=== PATIENT | male | born 1970 | race African-American/Black ===

== ENCOUNTER 2017-03-21 11:01 | Inpatient (IN) | payer OTHER ==
[2017-03-21 11:45] VITALS: BMI 31.7
--- NOTE | 2017-03-21 12:39 | HP ---
Admission ROS [facility] Chief Complaint: "I need to right my wrongs." Patient is here for Rehab for Cocaine. Allergies/Adverse Reactions: Allergies Allergy/AdvReac Type Severity Reaction Status Date / Time apple Allergy Intermediate Verified 03/21/17 11:54 History of Present Illness: Patient is a 46 YO male here for Rehab for Cocaine. Patient has had previous Detox admissions at [facility]. Exam Limitations: No Limitations - Ebola screening Have you traveled outside of the country in the last 21 days: No Have you had contact with anyone from an Ebola affected area: No Have you been sick,other than usual withdrawal symptoms: No Do you have a fever: No - Review of Systems Constitutional: Loss of Appetite, Malaise EENT: reports: Tearing, Dental Problems (Missing 1 tooth (upper).) Respiratory: reports: No Symptoms reported Cardiac: reports: No Symptoms Reported GI: reports: Blood Streaked Bowels (Interrmittent; Patient reports history of recurrent Hemorrhoid (since 2014).), Diarrhea, Poor Appetite : reports: No Symptoms Reported Musculoskeletal: reports: Back Pain Integumentary: reports: Other (Tattoo on top of head; patient has been scratching area recently.) Neuro: reports: No Symptoms reported Endocrine: reports: No Symptoms Reported Hematology: reports: No Symptoms Reported Psychiatric: reports: Judgement Intact, Mood/Affect Appropiate, Orientated x3 Other Systems: Reviewed and Negative Patient History - Patient Medical History Hx Anemia: No Hx Asthma: No Hx Chronic Obstructive Pulmonary Disease (COPD): No Hx Cancer: No Hx Cardiac Disorders: No Hx Congestive Heart Failure: No Hx Hypertension: No Hx Hypercholesterolemia: No Hx Pacemaker: No HX Cerebrovascular Accident: No Hx Seizures: No Hx Dementia: No Hx Diabetes: No Hx Gastrointestinal Disorders: No Hx Liver Disease: No Hx Genitourinary Disorders: No Hx Sexually Transmitted Disorders: Yes (gonorrhea, age 15, Treated.) Hx Renal Disease (ESRD): No Hx Thyroid Disease: No Hx Human Immunodeficiency Virus (HIV): No (Last tested: approx. 2 years ago: NEGATIVE.) Hx Hepatitis C: No (Does not recall being tested in past.) Hx Depression: No Hx Suicide Attempt: Yes (PATIENT DENIES CURRENT SI / HI.) Hx Bipolar Disorder: No Hx Schizophrenia: No Other Medical History: DENIES. - Patient Surgical History Past Surgical History: No Hx Neurologic Surgery: No Hx Cataract Extraction: No Hx Cardiac Surgery: No Hx Lung Surgery: No Hx Breast Surgery: No Hx Breast Biopsy: No Hx Abdominal Surgery: No Hx Appendectomy: No Hx Cholecystectomy: No Hx Genitourinary Surgery: No Hx Section: No Hx Orthopedic Surgery: No Anesthesia Reaction: No - PPD History Previous Implant?: Yes Documented Results: Negative w/o proof Implanted On Prior [facility] Admission?: Yes Date: 01/05/14 PPD to be Administered?: Yes - Reproductive History Patient is a Female of Child Bearing Age (11 -55 yrs old): No (PATIENT IS MALE.) - Smoking Cessation Smoking history: Current every day smoker Have you smoked in the past 12 months: Yes Aproximately how many cigarettes per day: 20 Cigars Per Day: 0 Hx Chewing Tobacco Use: No Initiated information on smoking cessation: Yes 'Breaking Loose' booklet given: 03/21/17 (GIVEN ON UNIT.) - Substance & Tx. History Hx Alcohol Use: No Hx Substance Use: Yes Substance Use Type: Cocaine Hx Substance Use Treatment: Yes (Previous Detox admissions at [facility] and at other locations.) - Substances Abused Cocaine Route: Smoking Frequency: Daily Amount used: 1 OZ. Age of first use: 19 Date of Last Use: 03/20/17 Family Disease History - Family Disease History Family Disease History: Respiratory: Brother (ASTHMA), Other: Father (Back Injuries.), Mother (HIV, AIDS, .) Admission Physical Exam [facility] - Vital Signs Vital Signs: Vital Signs - 24 hr 03/21/17 11:40 Temperature 99.1 F Pulse Rate 79 Respiratory 20 Rate Blood Pressure 135/76 - Physical General Appearance: Yes: No Apparent Distress, Nourished, Appropriately Dressed HEENTM: Yes: Hearing grossly Normal, Normocephalic, Normal Voice, [place], Pharynx Normal Respiratory: Yes: Chest Non-Tender, Lungs Clear, No Respiratory Distress Neck: Yes: No masses,lesions,Nodules, Supple, Trachea in good position Breast: Yes: Breast Exam Deferred Cardiology: Yes: Regular Rhythm, Regular Rate, S1, S2 Abdominal: Yes: Normal Bowel Sounds, Non Tender, Soft, Protuberent Genitourinary: Yes: Within Normal Limits Back: Yes: Decreased Range of Motion Musculoskeletal: Yes: Gait Steady, Back pain, Joint Stiffness Extremities: Yes: Normal Range of Motion, Non-Tender Neurological: Yes: Fully Oriented, Alert, Normal Mood/Affect, Normal Response Integumentary: Yes: Normal Color, Dry, Warm, Other (Small area of skin irritation on Left side of top of head, on tatoo. Patient notes that he has been "scratching at the tatoo because he does not like the way that it came out when it was done." Patient denies any sensation of itch or discomfort at affected site. Mild irritation noted upon inspection. No bleeding, discharge, or signs of infection noted at site.) Lymphatic: Yes: Within Normal Limits - Diagnostic (1) History of hemorrhoids Current Visit: Yes Status: Suspected (2) Cocaine dependence Current Visit: Yes Status: Chronic Qualifiers: Substance use status: uncomplicated Qualified Code(s): F14.20 - Cocaine dependence, uncomplicated (3) Nicotine dependence Current Visit: Yes Status: Chronic Qualifiers: Nicotine product type: cigarettes Substance use status: uncomplicated Qualified Code(s): F17.210 - Nicotine dependence, cigarettes, uncomplicated Cleared for Admission [facility] - Detox or Rehab Claeared for Rehab Admission: Yes [facility] Breath Alcohol Content Breath Alcohol Content: 0 Urine Drug Screen - Results Drug Screen Negative: No Urine Drug Screen Results: OLIMPIA-Cocaine
[2017-03-21] MEDS ORDERED: NICOTINE POLACRILEX 2 MG GUM BUC PRN (13:10)
[2017-03-21] MEDS ORDERED: guaiFENesin/D-METHORPHAN HB 10 ML UNIT-DOSE CUPS PO PRN (13:10)
[2017-03-21] MEDS ORDERED: IBUPROFEN 400 MG TABLET (FP) PO PRN (13:10)
[2017-03-21] MEDS ORDERED: hydrOXYzine PAMOATE 50 MG CAPSULE (FP) PO PRN (13:10)
[2017-03-21] MEDS ORDERED: MAG HYDROX/AL HYDROX/SIMETH 30 ML UNIT-DOSE CUP PO PRN (13:10)
[2017-03-21] MEDS ORDERED: LOPERAMIDE HCL 2 MG CAPSULE PO PRN (13:10)
[2017-03-21] MEDS ORDERED: P-EPHED 60MG/TRIPROLIDI 2.5MG TABLET PO PRN (13:10)
[2017-03-21] MEDS ORDERED: ACETAMINOPHEN 325 MG TABLET (FP) PO PRN (13:10)
[2017-03-21] MEDS ORDERED: MENTHOL/PHENOL 1 EACH UD MM PRN (13:10)
[2017-03-21] MEDS ORDERED: MAGNESIUM CITRATE 300 ML BOTTLE PO PRN (13:10)
[2017-03-21] MEDS ORDERED: MAGNESIUM HYDROX 2400MG/30ML ORAL SUSPENSION 30 ML CUP PO PRN (13:10)
[2017-03-21] MEDS ORDERED: WITCH HAZEL 50% (TUCKS) 40 PAD/JAR PAD TP PRN (13:14)
[2017-03-21 16:10] LABS: MCH 29.4 pg (25.7-33.7); MCHC 33.2 g/dl (32.0-35.9); MEAN CELL VOLUME 88.6 fl (80-96); MEAN PLT VOLUME 8.7 fl (7.5-11.1); PLATELET COUNT 250 K/MM3 (134-434); RDW 14.2 % (11.9-15.9); WHITE BLOOD COUNT 7.1 K/mm3 (4.0-10.0)
[2017-03-21 16:49] LABS: ALBUMIN 3.8 g/dl (3.4-5.0); ANION GAP 7 (8-16); BILIRUBIN,TOTAL 0.3 mg/dL (0.2-1.0); CALCIUM 9.2 mg/dL (8.5-10.1); CO2 27 mmol/L (21-32); CREATININE 1.2 mg/dL (0.7-1.3); GLUCOSE,RANDOM 106 mg/dL (74-106); SGOT/AST 52 U/L (15-37); SGPT/ALT 56 U/L (12-78)
[2017-03-21 16:50] LABS: ALK PHOS 84 U/L (45-117); TOT PROT 7.5 g/dl (6.4-8.2)
[2017-03-21] MEDS: BACITRACIN 0.9 GM PACKET TP SCH ×2 (17:03→21:22)
[2017-03-21] MEDS: diphenhydrAMINE HCL 50 MG CAPSULE PO PRN (21:22)
[2017-03-21] MEDS: THIAMINE HCL 100 MG TABLET (FP) PO SCH (21:22)
[2017-03-22] MEDS: BACITRACIN 0.9 GM PACKET TP SCH ×2 (09:58→21:14)
[2017-03-22] MEDS: PRENATAL VITAMINS W/ FOLIC ACID TABLET (FP) PO SCH (09:58)
[2017-03-22] MEDS: BENZOCAINE 28 GM HEMORRHOIDAL OINTMENT PR SCH (09:59)
--- NOTE | 2017-03-22 10:11 | HP ---
Psychiatrist Admission - Data Date of interview: 03/22/17 Admission source: [facility] Identifying data: This is the first 5N inpatient rehabilitation admission for this 46 year old single black male, who is currently homeless. Medical History: hemorrhoids, smokes cigarettes 1/2 PPD. Psychiatric History: Patient denies history of psychiatric treatment, but according to [facility] medical record while in detox in 2013 he carries a diagnosis of Bipolar d/o and treated with zyprexa, when patient was asked about medications, reported he does not want "all this staff". Physical/Sexual Abuse/Trauma History: Denies history of sexual, physica and verbal abuse. Vital Signs: Vital Signs - 24 hr 03/21/17 03/22/17 03/22/17 11:40 00:30 06:30 Temperature 99.1 F 97.8 F Pulse Rate 79 67 Respiratory 20 18 18 Rate Blood Pressure 135/76 108/73 Allergies/Adverse Reactions: Allergies Allergy/AdvReac Type Severity Reaction Status Date / Time apple Allergy Intermediate Verified 03/21/17 11:54 Date of last physical exam: 03/21/17 Concur with the findings of this exam: Yes - Substance Abuse/Tx History Hx Alcohol Use: No Hx Substance Use: Yes Substance Use Type: Cocaine ($400 inq 3 days.) Hx Substance Use Treatment: Yes - Admission Criteria Previous failed treatment: Yes Poor recovery environment: Yes Comorbidities: Yes Lacks judgement: Yes Mental Status Exam - Mental Status Exam Alert and Oriented to: Time, Place, Person Cognitive Function: Grossly Intact Patient Appearance: Well Groomed Mood: Hopeful Affect: Appropriate, Mood Congruent Patient Behavior: Appropriate, Cooperative Speech Pattern: Clear, Appropriate Voice Loudness: Normal Thought Process: Intact, Goal Oriented Thought Disorder: Not Present Hallucinations: Denies Suicidal Ideation: Denies Homicidal Ideation: Denies Insight/Judgement: Fair Sleep: Fair Appetite: Fair, Weight loss (9 lbs in a week, related it to his drug use) Muscle strength/Tone: Normal Gait/Station: Normal Psychiatric Findings - Problem List ([place] 1, 2,3) (1) Cocaine dependence Current Visit: Yes Status: Chronic Qualifiers: Substance use status: uncomplicated Qualified Code(s): F14.20 - Cocaine dependence, uncomplicated (2) Nicotine dependence Current Visit: Yes Status: Chronic Qualifiers: Nicotine product type: cigarettes Substance use status: uncomplicated Qualified Code(s): F17.210 - Nicotine dependence, cigarettes, uncomplicated (3) History of hemorrhoids Current Visit: Yes Status: Suspected (4) Mood disorder Current Visit: Yes Status: Acute - Initial Treatment Plan Initial Treatment Plan: will continue to monitor progress as needed.
[2017-03-22 10:13] LABS: URINE APPEARANCE CLEAR; URINE BILIRUBIN NEGATIVE (NEGATIVE); URINE BLOOD NEGATIVE (NEGATIVE); URINE COLOR YELLOW; URINE GLUCOSE (UA) NEGATIVE (NEGATIVE); URINE KETONE TRACE (NEGATIVE); URINE LEUK ESTERASE NEGATIVE (NEGATIVE); URINE NITRITE NEGATIVE (NEGATIVE); URINE PROTEIN NEGATIVE (NEGATIVE); URINE UROBILINOGEN NEGATIVE E.U./dl (0.2-1.0)
[2017-03-22] MEDS: diphenhydrAMINE HCL 50 MG CAPSULE PO PRN (21:14)
[2017-03-22] MEDS: THIAMINE HCL 100 MG TABLET (FP) PO SCH (21:14)
[2017-03-23 06:42] VITALS: BP 134/88; PULSE 59; TEMP 98.5
--- NOTE | 2017-03-23 07:21 | PN ---
[facility] Progress Note Note: Laboratory Last Values WBC 7.1 K/mm3 (4.0-10.0) D 03/21/17 13:30 RBC 4.64 M/mm3 (4.00-5.60) 03/21/17 13:30 Hgb 13.6 GM/dL (11.7-16.9) 03/21/17 13:30 Hct 41.1 % (35.4-49) 03/21/17 13:30 MCV 88.6 fl (80-96) 03/21/17 13:30 MCH 29.4 pg (25.7-33.7) 03/21/17 13:30 MCHC 33.2 g/dl (32.0-35.9) 03/21/17 13:30 RDW 14.2 % (11.9-15.9) 03/21/17 13:30 Plt Count 250 K/MM3 (134-434) 03/21/17 13:30 MPV 8.7 fl (7.5-11.1) 03/21/17 13:30 Sodium 141 mmol/L (136-145) 03/21/17 13:30 Potassium 4.1 mmol/L (3.5-5.1) 03/21/17 13:30 Chloride 107 mmol/L (98-107) 03/21/17 13:30 Carbon Dioxide 27 mmol/L (21-32) 03/21/17 13:30 Anion Gap 7 (8-16) L 03/21/17 13:30 BUN 19 mg/dL (7-18) H D 03/21/17 13:30 Creatinine 1.2 mg/dL (0.7-1.3) D 03/21/17 13:30 Creat Clearance w eGFR > 60 (>60) 03/21/17 13:30 Random Glucose 106 mg/dL (74-106) 03/21/17 13:30 Calcium 9.2 mg/dL (8.5-10.1) 03/21/17 13:30 Total Bilirubin 0.3 mg/dL (0.2-1.0) 03/21/17 13:30 AST 52 U/L (15-37) H D 03/21/17 13:30 ALT 56 U/L (12-78) D 03/21/17 13:30 Alkaline Phosphatase 84 U/L (45-117) 03/21/17 13:30 Total Protein 7.5 g/dl (6.4-8.2) 03/21/17 13:30 Albumin 3.8 g/dl (3.4-5.0) 03/21/17 13:30 Urine Color Yellow 03/22/17 07:50 Urine Appearance Clear 03/22/17 07:50 Urine pH 5.0 (5.0-8.0) 03/22/17 07:50 Ur Specific [place] >= 1.030 (1.005-1.025) H 03/22/17 07:50 Urine Protein Negative (NEGATIVE) 03/22/17 07:50 Urine Glucose (UA) Negative (NEGATIVE) 03/22/17 07:50 Urine Ketones Trace (NEGATIVE) H 03/22/17 07:50 Urine Blood Negative (NEGATIVE) 03/22/17 07:50 Urine Nitrite Negative (NEGATIVE) 03/22/17 07:50 Urine Bilirubin Negative (NEGATIVE) 03/22/17 07:50 Urine Urobilinogen Negative mg/dL (0.2-1.0) 03/22/17 07:50 Ur Leukocyte Esterase Negative (NEGATIVE) 03/22/17 07:50 RPR Titer Nonreactive (NONREACTIVE) 03/21/17 13:30 Hepatitis C Antibody <0.1 s/co ratio (0.0-0.9) 03/21/17 13:30 bun 19,creatine 1.2 advise encourage oral fluid
[2017-03-23] MEDS: PRENATAL VITAMINS W/ FOLIC ACID TABLET (FP) PO SCH (09:57)
[2017-03-23] MEDS: BENZOCAINE 28 GM HEMORRHOIDAL OINTMENT PR SCH (09:57)
[2017-03-23] MEDS: BACITRACIN 0.9 GM PACKET TP SCH (09:57)
--- NOTE | 2017-03-23 15:12 | PN ---
Psychiatric Progress Note Vital Signs: Vital Signs Period Temp Pulse Resp BP Sys/Estevez Pulse Ox Last 24 Hr 98.5 F 59 16-18 134/88 Date of Session: 03/23/17 Chief Complaint:: "leaving AMA" HPI: Patient is a 46 year old male with history of Cocaine, Nicotine dependence comorbid Mood disorder. Current Medications: Active Medications Generic Name Dose Route Start Last Admin Trade Name Freq PRN Reason Stop Dose Admin Acetaminophen 650 mg 03/21/17 13:10 Tylenol - PO Q4H PRN PAIN Al Hydroxide/Mg Hydroxide 30 ml 03/21/17 13:10 Mylanta Oral Suspension - PO Q6H PRN DYSPEPSIA Bacitracin 0.9 gm 03/21/17 14:37 03/23/17 09:57 Bacitracin - TP 0.9 gm BID FLORA Administration Benzocaine 1 applic 03/22/17 10:00 03/23/17 09:57 Americaine Ointment - [place] Not Given DAILY FLORA Diphenhydramine HCl 50 mg 03/21/17 13:10 03/22/17 21:14 Benadryl - PO 50 mg HSMR1 PRN Administration INSOMNIA Eucalyptus/Menthol/Phenol/Sorbitol 1 each 03/21/17 13:10 Cepastat Lozenge - MM Q4H PRN SORE THROAT Guaifenesin 10 ml 03/21/17 13:10 Robitussin Dm - PO Q6H PRN COUGH Hydroxyzine Pamoate 50 mg 03/21/17 13:10 Vistaril - PO Q4H PRN AGITATION Ibuprofen 400 mg 03/21/17 13:10 Motrin - PO Q6H PRN SEVERE PAIN Loperamide HCl 4 mg 03/21/17 13:10 Imodium - PO Q6H PRN DIARRHEA Magnesium Citrate 300 ml 03/21/17 13:10 Citroma - PO Q48H PRN CONSTIPATION Magnesium Hydroxide 30 ml 03/21/17 13:10 Milk Of Magnesia - PO DAILY PRN CONSTIPATION Nicotine Polacrilex 2 mg 03/21/17 13:10 Nicorette Gum - BUC Q2H PRN NICOTINE REPLACEMENT RX Multivit/Folic Acid/Iron 1 tab 03/22/17 10:00 03/23/17 09:57 Vitamins (Sjr) - PO 1 tab DAILY FLORA Administration Pseudoephedrine/Triprolidine 1 combo 03/21/17 13:10 Actifed - PO TID PRN NASAL CONGESTION Thiamine HCl 100 mg 03/21/17 22:00 03/22/17 21:14 Vitamin B1 - PO 100 mg HS FLORA Administration Witch Gaby/Glycerin 1 pad 03/21/17 13:14 Tucks Pads - TP PRN PRN PAIN Current Side Effect: No Lab tests ordered: No Lab tests reviewed: Yes Provider note:: Patient reports he is leaving [place], met with the patient to explore reasons for terminating treatment at this time, patient reportes that he has appointments with the "welfare" department and stated that he was told that he would be allowed to go out on a pass and return, when he found out he can't he decided to leave, patient was encouraged to stay in treatment, but adamant to leave, he seems to be stable for dishcharge. Total face to face time:: 15 Mental Status Exam - Mental Status Exam Alert and Oriented to: Time, Place, Person Cognitive Function: Good Patient Appearance: Well Groomed Mood: Hopeful Affect: Appropriate, Mood Congruent Patient Behavior: Appropriate, Cooperative Speech Pattern: Clear, Appropriate Voice Loudness: Normal Thought Process: Intact, Goal Oriented Thought Disorder: Not Present Hallucinations: Denies Suicidal Ideation: Denies Homicidal Ideation: Denies Insight/Judgement: Fair Sleep: Fair Appetite: Good Muscle strength/Tone: Normal Gait/Station: Normal Psychiatric Treatment Plan - Problem List (1) Cocaine dependence Current Visit: Yes Qualifiers: Substance use status: uncomplicated Qualified Code(s): F14.20 - Cocaine dependence, uncomplicated (2) Nicotine dependence Current Visit: Yes Qualifiers: Nicotine product type: cigarettes Substance use status: uncomplicated Qualified Code(s): F17.210 - Nicotine dependence, cigarettes, uncomplicated (3) History of hemorrhoids Current Visit: Yes (4) Mood disorder Current Visit: Yes
--- NOTE | 2017-03-23 16:06 | EKG ---
Test Reason : Blood Pressure : / mmHG Vent. Rate : 068 BPM Atrial Rate : 068 BPM P-R Int : 142 ms QRS Dur : 090 ms QT Int : 416 ms P-R-T Axes : 074 059 022 degrees QTc Int : 442 ms NORMAL SINUS RHYTHM NORMAL ECG NO PREVIOUS ECGS AVAILABLE Confirmed by MANN OTOOLE MD ([id number]) on 03/23/2017 4:05:54 PM Referred By: Confirmed By:MANN OTOOLE MD
== END 2017-03-23 15:00 | disposition left against medical advice (07) | DRG 770 ==
LOC: YASAS 11:01 → Y5N 13:57
PROVIDERS: ADMIT Psychiatry & Neurology Psychiatry; ATTEND Psychiatry & Neurology Psychiatry
PROC: HZ42ZZZ Group Counseling for Substance Abuse Treatment, Cognitive-Behavioral (ICD-10-PCS; principal; 2017-03-21)
DX: F14.20 Cocaine dependence, uncomplicated (principal); F17.210 Nicotine dependence, cigarettes, uncomplicated; F39 Unspecified mood [affective] disorder; Z87.438 Personal history of other diseases of male genital organs; Z91.5 Personal history of self-harm; Z59.0 Homelessness
CPT/HCPCS: 36415; 80053; 81003; 85027; 86593; 86803; 93005; 93010

== ENCOUNTER 2018-04-17 11:00 | Inpatient (IN) | payer OTHER ==
[2018-04-17 13:07] VITALS: BMI 31.6
--- NOTE | 2018-04-17 16:31 | HP ---
CIWA Score - CIWA Score Nausea/Vomitin Muscle Tremors: 2 Anxiety: 2 Agitation: 0-Normal Activity Paroxysmal Sweats: 2 Orientation: 0-Oriented Tacttile Disturbances: 1-Very Mild Itch/Numbness Auditory Disturbances: 1-Very Mild Visual Disturbances: 1-Very Mild Sensitivity Headache: 1-Very Mild CIWA-Ar Total Score: 12 Admission ROS [facility] - HPI Chief Complaint: WITHDRAWAL SYMPTOMS Allergies/Adverse Reactions: Allergies Allergy/AdvReac Type Severity Reaction Status Date / Time apple AdvReac Severe Vomiting Verified 04/17/18 13:45 Fish Containing Products AdvReac Severe Vomiting Verified 04/17/18 13:45 NKDA Allergy Uncoded 04/17/18 13:45 History of Present Illness: 47 Y.O. MAN WITH A HISTORY OF ALCOHOL, MARIJUANA AND COCAINE DEPENDENCE IS HERE SEEKING DETOX AND REHAB SERVICES. LONGEST PERIOD OF SOBRIETY HAS BEEN 1 YEAR. Exam Limitations: No Limitations - Ebola screening Have you traveled outside of the country in the last 21 days: No Have you had contact with anyone from an Ebola affected area: No Have you been sick,other than usual withdrawal symptoms: No Do you have a fever: No - Review of Systems Constitutional: No Symptoms Reported EENT: reports: Blurred Vision, Double Vision Respiratory: reports: No Symptoms reported Cardiac: reports: No Symptoms Reported GI: reports: No Symptoms Reported : reports: No Symptoms Reported Musculoskeletal: reports: No Symptoms Reported Integumentary: reports: No Symptoms Reported Neuro: reports: Headache, Numbness Endocrine: reports: No Symptoms Reported Hematology: reports: No Symptoms Reported Psychiatric: reports: Orientated x3 Other Systems: Reviewed and Negative Patient History - Patient Medical History Hx Anemia: No Hx Asthma: No Hx Chronic Obstructive Pulmonary Disease (COPD): No Hx Cancer: No Hx Cardiac Disorders: No Hx Congestive Heart Failure: No Hx Hypertension: No Hx Hypercholesterolemia: No Hx Pacemaker: No HX Cerebrovascular Accident: No Hx Seizures: No Hx Dementia: No Hx Diabetes: No Hx Gastrointestinal Disorders: No Hx Liver Disease: No Hx Genitourinary Disorders: No Hx Sexually Transmitted Disorders: Yes (gonorrhea) Hx Renal Disease (ESRD): No Hx Thyroid Disease: No Hx Human Immunodeficiency Virus (HIV): No (Last tested: approx. 2 years ago: NEGATIVE.) Hx Hepatitis C: No (Does not recall being tested in past.) Hx Depression: No Hx Suicide Attempt: No Hx Bipolar Disorder: No Hx Schizophrenia: No - Patient Surgical History Past Surgical History: No Hx Neurologic Surgery: No Hx Cataract Extraction: No Hx Cardiac Surgery: No Hx Lung Surgery: No Hx Breast Surgery: No Hx Breast Biopsy: No Hx Abdominal Surgery: No Hx Appendectomy: No Hx Cholecystectomy: No Hx Genitourinary Surgery: No Hx Section: No Hx Orthopedic Surgery: No Anesthesia Reaction: No - PPD History Previous Implant?: Yes Documented Results: Negative w/proof Implanted On Prior [facility] Admission?: Yes Date: 01/05/14 Results: 0 mm PPD to be Administered?: Yes - Reproductive History Patient is a Female of Child Bearing Age (11 -55 yrs old): No - Smoking Cessation Smoking history: Current every day smoker Have you smoked in the past 12 months: Yes Aproximately how many cigarettes per day: 10 Cigars Per Day: 0 Hx Chewing Tobacco Use: No Initiated information on smoking cessation: Yes 'Breaking Loose' booklet given: 04/17/18 - Substance & Tx. History Hx Alcohol Use: Yes Hx Substance Use: Yes Substance Use Type: Alcohol, Cocaine, Marijuana Hx Substance Use Treatment: Yes (DETOX: 2013; REHAB: 03/23/18) - Substances Abused Cocaine Route: Smoking Frequency: Daily Amount used: $100 Age of first use: 20 Date of Last Use: 04/16/18 Alcohol-beer Route: Oral Frequency: Daily Amount used: 4-5 (40 oz.)/5 shots (whisky) Age of first use: 19 Date of Last Use: 04/16/18 Marijuana Route: Smoking Frequency: Daily Amount used: $50 Age of first use: 15 Date of Last Use: 04/16/18 Family Disease History - Family Disease History Family Disease History: Respiratory: Brother (ASTHMA), Other: Father (Back Injuries.), Mother (HIV, AIDS, .) Admission Physical Exam [facility] - Vital Signs Vital Signs: Vital Signs - 24 hr 04/17/18 13:05 Temperature 99.9 F H Pulse Rate 74 Respiratory 20 Rate Blood Pressure 137/86 - Physical General Appearance: Yes: Disheveled HEENTM: Yes: Hearing grossly Normal, Normal ENT Inspection, Normocephalic, Normal Voice Respiratory: Yes: Chest Non-Tender, Lungs Clear, Normal Breath Sounds, No Respiratory Distress, No Accessory Muscle Use Neck: Yes: No masses,lesions,Nodules, Trachea in good position Breast: Yes: Breast Exam Deferred Cardiology: Yes: Regular Rhythm, Regular Rate Abdominal: Yes: Normal Bowel Sounds, Non Tender Genitourinary: Yes: Other Back: Yes: Normal Inspection Musculoskeletal: Yes: Back pain Extremities: Yes: Normal Inspection, Normal Range of Motion, Non-Tender Neurological: Yes: Fully Oriented, Alert, Motor Strength 5/5, Normal Mood/Affect , Normal Response Integumentary: Yes: Normal Color, Dry, Warm Lymphatic: Yes: Within Normal Limits - Diagnostic (1) Alcohol dependence, uncomplicated Current Visit: Yes Status: Chronic (2) Marijuana dependence Current Visit: Yes Status: Chronic (3) Cocaine dependence Current Visit: Yes Status: Chronic Qualifiers: Substance use status: uncomplicated Qualified Code(s): F14.20 - Cocaine dependence, uncomplicated (4) Nicotine dependence Current Visit: Yes Status: Chronic Qualifiers: Nicotine product type: cigarettes Substance use status: uncomplicated Qualified Code(s): F17.210 - Nicotine dependence, cigarettes, uncomplicated Cleared for Admission [facility] - Detox or Rehab [facility] Level of Care: Medically Managed Detox Regimen/Protocol: Librium [facility] Breath Alcohol Content Breath Alcohol Content: 0 Urine Drug Screen - Results Drug Screen Negative: No Urine Drug Screen Results: THC-Marijuana, OLIMPIA-Cocaine
[2018-04-17] MEDS ORDERED: MAGNESIUM HYDROX 2400MG/30ML ORAL SUSPENSION 30 ML CUP PO PRN (16:33)
[2018-04-17] MEDS ORDERED: hydrOXYzine PAMOATE 50 MG CAPSULE (FP) PO PRN (16:33)
[2018-04-17] MEDS ORDERED: guaiFENesin/D-METHORPHAN HB 10 ML UNIT-DOSE CUPS PO PRN (16:33)
[2018-04-17] MEDS ORDERED: MAGNESIUM CITRATE 300 ML BOTTLE PO PRN (16:33)
[2018-04-17] MEDS ORDERED: MENTHOL/PHENOL 1 EACH UD MM PRN (16:33)
[2018-04-17] MEDS ORDERED: chlordiazePOXIDE HCL 25 MG CAPSULE PO PRN (16:33)
[2018-04-17] MEDS ORDERED: IBUPROFEN 400 MG TABLET (FP) PO PRN (16:33)
[2018-04-17] MEDS ORDERED: LOPERAMIDE HCL 2 MG CAPSULE PO PRN (16:33)
[2018-04-17] MEDS ORDERED: MAG HYDROX/AL HYDROX/SIMETH 30 ML UNIT-DOSE CUP PO PRN (16:33)
[2018-04-17] MEDS ORDERED: P-EPHED 60MG/TRIPROLIDI 2.5MG TABLET PO PRN (16:33)
[2018-04-17] MEDS ORDERED: NICOTINE POLACRILEX 2 MG GUM BC PRN (16:33)
[2018-04-17] MEDS ORDERED: ACETAMINOPHEN 325 MG TABLET (FP) PO PRN (16:33)
[2018-04-17] MEDS ORDERED: chlordiazePOXIDE HCL 25 MG CAPSULE PO ONE (17:00)
[2018-04-17] MEDS ORDERED: MELATONIN 5 MG TABLETS PO PRN (22:00)
[2018-04-17] MEDS: THIAMINE HCL 100 MG TABLET (FP) PO SCH (22:51)
[2018-04-17] MEDS: chlordiazePOXIDE HCL 25 MG CAPSULE PO SCH (22:51)
[2018-04-18 03:06] LABS: URINE APPEARANCE TURBID; URINE BILIRUBIN NEGATIVE (<2.0 mg/dL); URINE COLOR YELLOW; URINE GLUCOSE (UA) NEGATIVE (NEGATIVE); URINE KETONE NEGATIVE (NEGATIVE); URINE LEUK ESTERASE NEGATIVE (NEGATIVE); URINE NITRITE NEGATIVE (NEGATIVE); URINE UROBILINOGEN NEGATIVE mg/dL (0.2-1.0)
[2018-04-18 03:09] LABS: URINE PROTEIN 1+ (NEGATIVE)
[2018-04-18 03:17] LABS: URINE BACTERIA FEW /hpf (NONE SEEN); URINE MUCUS RARE
[2018-04-18] MEDS: chlordiazePOXIDE HCL 25 MG CAPSULE PO SCH ×4 (05:10→22:16)
[2018-04-18] MEDS ORDERED: PRENATAL VITAMINS W/ FOLIC ACID TABLET (FP) PO SCH (10:00)
--- NOTE | 2018-04-18 10:29 | EKG ---
Test Reason : Blood Pressure : / mmHG Vent. Rate : 076 BPM Atrial Rate : 076 BPM P-R Int : 136 ms QRS Dur : 084 ms QT Int : 384 ms P-R-T Axes : 077 068 019 degrees QTc Int : 432 ms NORMAL SINUS RHYTHM NORMAL ECG WHEN COMPARED WITH ECG OF 21-MAR-2017 15:41, NO SIGNIFICANT CHANGE WAS FOUND Confirmed by KELSEY MACKEY MD ([id number]) on 04/18/2018 10:29:06 AM Referred By: Confirmed By:KELSEY MACKEY MD
[2018-04-18 10:48] LABS: HEMATOCRIT 40.7 % (35.4-49); HEMOGLOBIN 13.8 GM/dL (11.7-16.9); MCH 30.3 pg (25.7-33.7); MCHC 33.8 g/dl (32.0-35.9); MEAN CELL VOLUME 89.5 fl (80-96); MEAN PLT VOLUME 8.8 fl (7.5-11.1); PLATELET COUNT 220 K/MM3 (134-434); RBC 4.54 M/mm3 (4.00-5.60); RDW 13.8 % (11.9-15.9)
--- NOTE | 2018-04-18 13:15 | PN ---
S CIWA - CIWA Score Nausea/Vomitin-No Nausea/No Vomiting Muscle Tremors: 3 Anxiety: 4-Mod. Anxious/Guarded Agitation: 3 Paroxysmal Sweats: 3 Orientation: 0-Oriented Tacttile Disturbances: 2-Mild Itch/Numbness/Burn Auditory Disturbances: 2-Mild Harshness/Frighten Visual Disturbances: 1-Very Mild Sensitivity Headache: 0-None Present CIWA-Ar Total Score: 18 [facility] Progress Note (SOAP) Subjective: Sweating, Tremors, Fatigue. Objective: PATIENT A & O X 3. NO ACUTE DISTRESS. 04/18/18 13:14 Vital Signs Temperature 98.4 F 04/18/18 09:16 Pulse Rate 54 L 04/18/18 09:16 Respiratory Rate 18 04/18/18 09:16 Blood Pressure 83/53 04/18/18 09:16 O2 Sat by Pulse Oximetry (%) Laboratory Tests 04/17/18 04/18/18 22:30 05:50 WBC 5.0 RBC 4.54 Hgb 13.8 Hct 40.7 MCV 89.5 MCH 30.3 MCHC 33.8 RDW 13.8 Plt Count 220 MPV 8.8 Urine Color Yellow Urine Appearance Turbid Urine pH 5.0 Ur Specific [place] 1.031 Urine Protein 1+ H Urine Glucose (UA) Negative Urine Ketones Negative Urine Blood Negative Urine Nitrite Negative Urine Bilirubin Negative Urine Urobilinogen Negative Ur Leukocyte Esterase Negative Urine WBC (Auto) 9 Urine RBC (Auto) 3 Urine Bacteria Few Urine Mucus Rare LABS NOTED. CMP, RPR RESULTS PENDING. 04/18/18 13:14 Assessment: 04/18/18 13:14 WITHDRAWAL SYMPTOMS. Plan: CONTINUE DETOX. INCREASE DAILY PO FLUID INTAKE.
[2018-04-18 14:51] LABS: ALBUMIN 3.9 g/dl (3.4-5.0); ANION GAP 13 (8-16); BLOOD UREA NITROGEN 22 mg/dL (7-18); CALCIUM 9.3 mg/dL (8.5-10.1); CHLORIDE 104 mmol/L (98-107); CO2 25 mmol/L (21-32); CREATININE 1.2 mg/dL (0.7-1.3); GLUCOSE,RANDOM 121 mg/dL (74-106); SGOT/AST 58 U/L (15-37); SGPT/ALT 63 U/L (12-78); SODIUM 142 mmol/L (136-145); TOT PROT 7.5 g/dl (6.4-8.2)
[2018-04-18 14:54] LABS: ALK PHOS 82 U/L (45-117)
[2018-04-18 14:55] LABS: BILIRUBIN,TOTAL 0.4 mg/dL (0.2-1.0)
[2018-04-18] MEDS: THIAMINE HCL 100 MG TABLET (FP) PO SCH (22:16)
[2018-04-19] MEDS: chlordiazePOXIDE HCL 25 MG CAPSULE PO SCH (06:00)
[2018-04-19 06:14] VITALS: BP 110/68; PULSE 62; TEMP 97.6
--- NOTE | 2018-04-19 07:28 | DS ---
[facility] Detox Discharge Summary Admission Date: 04/17/18 Discharge Date: 04/19/18 - History Additional Comments: Patient is leaving against medical advice because he has to take care of immediate family issue. Pertinent Past History: nicotine dependence, alcohol dependence, opioid dependence, sedative dependence and benzo dependence - Physical Exam Results Vital Signs: Vital Signs Temperature 97.6 F 04/19/18 06:14 Pulse Rate 62 04/19/18 06:14 Respiratory Rate 18 04/19/18 06:14 Blood Pressure 110/68 04/19/18 06:14 O2 Sat by Pulse Oximetry (%) Laboratory Last Values WBC 5.0 K/mm3 (4.0-10.0) 04/18/18 05:50 RBC 4.54 M/mm3 (4.00-5.60) 04/18/18 05:50 Hgb 13.8 GM/dL (11.7-16.9) 04/18/18 05:50 Hct 40.7 % (35.4-49) 04/18/18 05:50 MCV 89.5 fl (80-96) 04/18/18 05:50 MCH 30.3 pg (25.7-33.7) 04/18/18 05:50 MCHC 33.8 g/dl (32.0-35.9) 04/18/18 05:50 RDW 13.8 % (11.9-15.9) 04/18/18 05:50 Plt Count 220 K/MM3 (134-434) 04/18/18 05:50 MPV 8.8 fl (7.5-11.1) 04/18/18 05:50 Sodium 142 mmol/L (136-145) 04/18/18 05:50 Potassium 4.0 mmol/L (3.5-5.1) 04/18/18 05:50 Chloride 104 mmol/L (98-107) 04/18/18 05:50 Carbon Dioxide 25 mmol/L (21-32) 04/18/18 05:50 Anion Gap 13 (8-16) 04/18/18 05:50 BUN 22 mg/dL (7-18) H 04/18/18 05:50 Creatinine 1.2 mg/dL (0.7-1.3) 04/18/18 05:50 Creat Clearance w eGFR > 60 (>60) 04/18/18 05:50 Random Glucose 121 mg/dL (74-106) H 04/18/18 05:50 Calcium 9.3 mg/dL (8.5-10.1) 04/18/18 05:50 Total Bilirubin 0.4 mg/dL (0.2-1.0) 04/18/18 05:50 AST 58 U/L (15-37) H 04/18/18 05:50 ALT 63 U/L (12-78) 04/18/18 05:50 Alkaline Phosphatase 82 U/L (45-117) 04/18/18 05:50 Total Protein 7.5 g/dl (6.4-8.2) 04/18/18 05:50 Albumin 3.9 g/dl (3.4-5.0) 04/18/18 05:50 Urine Color Yellow 04/17/18 22:30 Urine Appearance Turbid 04/17/18 22:30 Urine pH 5.0 (5.0-8.0) 04/17/18 22:30 Ur Specific [place] 1.031 (1.001-1.035) 04/17/18 22:30 Urine Protein 1+ (NEGATIVE) H 04/17/18 22:30 Urine Glucose (UA) Negative (NEGATIVE) 04/17/18 22:30 Urine Ketones Negative (NEGATIVE) 04/17/18 22:30 Urine Blood Negative (NEGATIVE) 04/17/18 22:30 Urine Nitrite Negative (NEGATIVE) 04/17/18 22:30 Urine Bilirubin Negative (<2.0 mg/dL) 04/17/18 22:30 Urine Urobilinogen Negative mg/dL (0.2-1.0) 04/17/18 22:30 Ur Leukocyte Esterase Negative (NEGATIVE) 04/17/18 22:30 Urine WBC (Auto) 9 /hpf (3-5) 04/17/18 22:30 Urine RBC (Auto) 3 /hpf (0-3) 04/17/18 22:30 Urine Bacteria Few /hpf (NONE SEEN) 04/17/18 22:30 Urine Mucus Rare 04/17/18 22:30 Pertinent Admission Physical Exam Findings: Withdrawal symptoms - Medication Discharge Medications: Ambulatory Orders NK [No Known Home Medication] 03/21/17 - Diagnosis (1) Alcohol dependence, uncomplicated Current Visit: Yes Status: Acute (2) Cocaine dependence Current Visit: Yes Status: Chronic Qualifiers: Substance use status: uncomplicated Qualified Code(s): F14.20 - Cocaine dependence, uncomplicated (3) Marijuana dependence Current Visit: Yes Status: Chronic (4) Nicotine dependence Current Visit: Yes Status: Chronic Qualifiers: Nicotine product type: cigarettes Substance use status: uncomplicated Qualified Code(s): F17.210 - Nicotine dependence, cigarettes, uncomplicated (5) Mood disorder Current Visit: No Status: Acute (6) History of hemorrhoids Current Visit: No Status: Suspected - AMA Did Patient Leave Against Medical Advice: Yes
[2018-04-19] MEDS ORDERED: chlordiazePOXIDE 5 MG CAPSULE PO SCH (23:00)
[2018-04-20] MEDS ORDERED: chlordiazePOXIDE HCL 10 MG CAPSULE PO SCH (23:00)
== END 2018-04-19 07:25 | disposition left against medical advice (07) | DRG 770 ==
LOC: YASAS 11:00 → Y3N 15:34
PROVIDERS: ADMIT Surgery; ATTEND Surgery
PROC: HZ2ZZZZ Detoxification Services for Substance Abuse Treatment (ICD-10-PCS; principal; 2018-04-17)
DX: F10.230 Alcohol dependence with withdrawal, uncomplicated (principal); F14.20 Cocaine dependence, uncomplicated; F12.20 Cannabis dependence, uncomplicated; F17.210 Nicotine dependence, cigarettes, uncomplicated; F39 Unspecified mood [affective] disorder; Z87.438 Personal history of other diseases of male genital organs; Z91.013 Allergy to seafood; Z59.0 Homelessness
CPT/HCPCS: 36415; 80053; 81003; 81015; 85027; 86593; 93005; 93010

== ENCOUNTER 2019-03-12 17:51 | Inpatient (IN) | payer OTHER ==
[2019-03-12 21:54] VITALS: BMI 37.2
--- NOTE | 2019-03-13 02:16 | HP ---
CIWA Score Nausea/Vomitin (vomiting x 3) Muscle Tremors: 3 Anxiety: 3 Agitation: 4-Moderately Restless Paroxysmal Sweats: 2 Orientation: 0-Oriented Tacttile Disturbances: 0-None Auditory Disturbances: 0-None Visual Disturbances: 0-None Headache: 0-None Present CIWA-Ar Total Score: 15 - Admission Criteria [facility]AS[facility] Guidelines: Admission for Medically Managed Detox: Requires at least one of the followin. CIWA greater than 12 2. Seizures within the past 24 hours 3. Delirium tremens within the past 24 hours 4. Hallucinations within the past 24 hours 5. Acute intervention needed for co occurring medical disorder 6. Acute intervention needed for co occurring psychiatric disorder 7. Severe withdrawal that cannot be handled at a lower level of care (continued vomiting, continued diarrhea, abnormal vital signs) requiring intravenous medication and/or fluids 8. Admission ROS [facility] Chief Complaint: Alcohol withdrawal symptoms Allergies/Adverse Reactions: Allergies Allergy/AdvReac Type Severity Reaction Status Date / Time No Known Drug Allergies Allergy Verified 03/12/19 21:43 apple AdvReac Severe Vomiting Verified 03/12/19 21:43 Fish Containing Products AdvReac Severe Vomiting Verified 03/12/19 21:43 NKDA Allergy Uncoded 03/12/19 21:43 History of Present Illness: 48 years old male with a long history of alcohol dependence is seeking admission to detox. Patient has b een to multiple detox and reports 6 months of sobriety. He has history of gonorrhea and denies suicidal ideation at this time. Exam Limitations: No Limitations - Ebola screening Have you traveled outside of the country in the last 21 days: No Have you had contact with anyone from an Ebola affected area: No Do you have a fever: No - Review of Systems Constitutional: Loss of Appetite, Malaise, Night Sweats, Changes in sleep EENT: reports: Sinus Pressure Respiratory: reports: No Symptoms reported Cardiac: reports: No Symptoms Reported GI: reports: Diarrhea (x 2), Nausea, Poor Appetite, Poor Fluid Intake : reports: No Symptoms Reported Musculoskeletal: reports: Back Pain, Joint Pain, Muscle Weakness Integumentary: reports: Dryness, Flushing Neuro: reports: Headache, Tremors Endocrine: reports: No Symptoms Reported Hematology: reports: No Symptoms Reported Psychiatric: reports: Judgement Intact, Agitated, Anxious Other Systems: Reviewed and Negative Patient History - Patient Medical History Hx Anemia: No Hx Asthma: No Hx Chronic Obstructive Pulmonary Disease (COPD): No Hx Cancer: No Hx Cardiac Disorders: No Hx Congestive Heart Failure: No Hx Hypertension: No Hx Hypercholesterolemia: No Hx Pacemaker: No HX Cerebrovascular Accident: No Hx Seizures: No Hx Dementia: No Hx Diabetes: No Hx Gastrointestinal Disorders: No Hx Liver Disease: No Hx Genitourinary Disorders: No Hx Sexually Transmitted Disorders: Yes (gonorrhea) Hx Renal Disease (ESRD): No Hx Thyroid Disease: No Hx Human Immunodeficiency Virus (HIV): No (Last tested: approx. 2 years ago: NEGATIVE.) Hx Hepatitis C: No (Does not recall being tested in past.) Hx Depression: No Hx Suicide Attempt: No Hx Bipolar Disorder: No Hx Schizophrenia: No - Patient Surgical History Past Surgical History: Yes Hx Neurologic Surgery: Yes Hx Cataract Extraction: Yes Hx Cardiac Surgery: Yes Hx Lung Surgery: Yes Hx Breast Surgery: No Hx Breast Biopsy: No Hx Abdominal Surgery: No Hx Appendectomy: No Hx Cholecystectomy: No Hx Genitourinary Surgery: No Hx Section: No Hx Orthopedic Surgery: No Anesthesia Reaction: No - PPD History Documented Results: Negative w/proof Implanted On Prior [facility] Admission?: Yes Date: 04/19/18 Results: 0 mm PPD to be Administered?: No - Reproductive History Patient is a Female of Child Bearing Age (11 -55 yrs old): No (male) - Smoking Cessation Smoking history: Current every day smoker Have you smoked in the past 12 months: Yes Aproximately how many cigarettes per day: 10 Cigars Per Day: 0 Hx Chewing Tobacco Use: No Initiated information on smoking cessation: Yes 'Breaking Loose' booklet given: 03/13/19 - Substance & Tx. History Hx Alcohol Use: Yes Hx Substance Use: Yes Substance Use Type: Alcohol, Cocaine, Marijuana Hx Substance Use Treatment: Yes - Substances abused Alcohol Substance route: Oral Frequency: Daily Amount used: 1 pint Age of first use: 15 Date of last use: 03/12/19 Cocaine Substance route: Smoking Frequency: 1-2 times per week Amount used: 1 grams Age of first use: 19 Date of last use: 03/12/19 Marijuana/Hashish Substance route: Smoking Frequency: Daily Amount used: 1/2 pack Age of first use: 13 Date of last use: 03/12/19 Family Disease History - Family Disease History Family Disease History: Diabetes: Grandparent, Father (Back Injuries.), Mother ( HIV, AIDS, .), Brother (ASTHMA), Sister, Son, Daughter, Respiratory: Brother, Other: Father, Mother Admission Physical Exam [facility] - Vital Signs Vital Signs: Vital Signs - 24 hr 03/12/19 21:44 Temperature 98.6 F Pulse Rate 67 Respiratory 16 Rate Blood Pressure 136/83 - Physical General Appearance: Yes: Moderate Distress, Tremorous, Anxious HEENTM: Yes: Within Normal Limits Respiratory: Yes: Lungs Clear, Normal Breath Sounds, No Respiratory Distress Neck: Yes: Supple Breast: Yes: Breast Exam Deferred Cardiology: Yes: Regular Rhythm, Regular Rate Abdominal: Yes: Normal Bowel Sounds Genitourinary: Yes: Within Normal Limits Back: Yes: Normal Inspection Musculoskeletal: Yes: Back pain, Muscle Pain Extremities: Yes: Tremors Neurological: Yes: Within Normal Limits, Normal Mood/Affect Integumentary: Yes: Warm Lymphatic: Yes: Within Normal Limits Cleared for Admission [facility] - Detox or Rehab [facility] Level of Care: Medically Managed Detox Regimen/Protocol: Librium Breathalyzer - Breathalyzer Breathalyzer: 0 Urine Drug Screen - Test Device Lot number: [id number] Expiration date: 11/08/20 - Control Is test valid?: Yes - Results Drug screen NEGATIVE: No Urine drug screen results: THC-Marijuana, OLIMPIA-Cocaine, MTD-Methadone Inpatient Rehab Admission - Rehab Decision to Admit Inpatient rehab admission?: No
[2019-03-13] MEDS ORDERED: MAGNESIUM HYDROX 2400MG/30ML ORAL SUSPENSION 30 ML CUP PO PRN (02:25)
[2019-03-13] MEDS ORDERED: ACETAMINOPHEN 325 MG TABLET (FP) PO PRN ×2 (02:25)
[2019-03-13] MEDS ORDERED: IBUPROFEN 400 MG TABLET (FP) PO PRN (02:25)
[2019-03-13] MEDS ORDERED: NICOTINE POLACRILEX 2 MG GUM BUC PRN (02:25)
[2019-03-13] MEDS ORDERED: hydrOXYzine PAMOATE 25 MG CAPSULE (FP) PO PRN (02:25)
[2019-03-13] MEDS ORDERED: MENTHOL/PHENOL 1 EACH UD MM PRN (02:25)
[2019-03-13] MEDS ORDERED: METHOCARBAMOL 500 MG TABLET PO PRN (02:25)
[2019-03-13] MEDS ORDERED: MAGNESIUM CITRATE 300 ML BOTTLE PO PRN (02:25)
[2019-03-13] MEDS ORDERED: MAG HYDROX/AL HYDROX/SIMETH 30 ML UNIT-DOSE CUP PO PRN (02:25)
[2019-03-13] MEDS ORDERED: MELATONIN 5 MG TABLETS PO PRN (02:25)
[2019-03-13] MEDS ORDERED: BISMUTH SUBSALICYLATE 524 MG/30 ML UD PO PRN (02:25)
[2019-03-13] MEDS ORDERED: chlordiazePOXIDE HCL 25 MG CAPSULE PO PRN (02:25)
[2019-03-13] MEDS: chlordiazePOXIDE HCL 25 MG CAPSULE PO SCH ×4 (06:28→22:09)
--- NOTE | 2019-03-13 10:42 | EKG ---
Test Reason : Blood Pressure : / mmHG Vent. Rate : 057 BPM Atrial Rate : 057 BPM P-R Int : 154 ms QRS Dur : 084 ms QT Int : 456 ms P-R-T Axes : 048 043 021 degrees QTc Int : 443 ms SINUS BRADYCARDIA OTHERWISE NORMAL ECG WHEN COMPARED WITH ECG OF 17-APR-2018 17:47, NO SIGNIFICANT CHANGE WAS FOUND Confirmed by KELSEY MACKEY MD ([id number]) on 03/13/2019 10:41:52 AM Referred By: Confirmed By:KELSEY MACKEY MD
--- NOTE | 2019-03-13 11:14 | PN ---
S Progress Note Note: PT WAS ADMITTED EARLY THIS MORNING. C/O SWEATS,TREMORS, MUSCLE ACHES, INTERMITTENT SLEEP. Vital Signs 03/13/19 03/13/19 03/13/19 03:44 07:42 09:24 Temperature 98.1 F 98.1 F 98.3 F Pulse Rate 62 57 L 53 L Respiratory 18 20 18 Rate Blood Pressure 113/75 100/60 108/52 L CONTINUE DETOX.
[2019-03-13] MEDS: NICOTINE 14 MG/24 HOURS TOPICAL PATCH TD SCH (11:30)
[2019-03-13] MEDS: PRENATAL VITAMINS W/ FOLIC ACID TABLET (FP) PO SCH (11:30)
[2019-03-13] MEDS: THIAMINE HCL 100 MG TABLET (FP) PO SCH (22:10)
--- NOTE | 2019-03-13 22:16 | CONSULT ---
[facility] Psychiatric Consult - Data Date of interview: 03/13/19 Admission source: [facility] Identifying data: Reaming Machine Operator attempted to speak to Mr. Turpin at 6pm concerning psychiatric consultation but patient refused. Stated to lyric writer, " I'm tired. I can't talk right now."
[2019-03-14] MEDS: chlordiazePOXIDE HCL 25 MG CAPSULE PO SCH ×4 (06:20→22:19)
--- NOTE | 2019-03-14 09:24 | PN ---
S CIWA - CIWA Score Nausea/Vomitin Muscle Tremors: 2 Anxiety: 2 Agitation: 2 Paroxysmal Sweats: No Perspiration Orientation: 0-Oriented Tacttile Disturbances: 1-Very Mild Itch/Numbness Auditory Disturbances: 1-Very Mild Visual Disturbances: 0-None Headache: 1-Very Mild CIWA-Ar Total Score: 11 [facility] Progress Note (SOAP) Subjective: alert,irritable,anxious,interrupted sleep,tremor Objective: 03/14/19 09:23 Vital Signs Temperature 98.8 F 03/14/19 09:14 Pulse Rate 58 L 03/14/19 09:14 Respiratory Rate 16 03/14/19 09:14 Blood Pressure 113/51 L 03/14/19 09:14 O2 Sat by Pulse Oximetry (%) 03/14/19 09:23 labs pending Assessment: 03/14/19 09:24 withdrawal symptom Plan: continue detox
[2019-03-14] MEDS: NICOTINE 14 MG/24 HOURS TOPICAL PATCH TD SCH (11:29)
[2019-03-14] MEDS: PRENATAL VITAMINS W/ FOLIC ACID TABLET (FP) PO SCH (11:29)
[2019-03-14 13:17] LABS: HEMATOCRIT 38.2 % (35.4-49); HEMOGLOBIN 12.6 GM/dL (11.7-16.9); MCH 29.3 pg (25.7-33.7); MCHC 33.1 g/dl (32.0-35.9); MEAN CELL VOLUME 88.6 fl (80-96); RBC 4.31 M/mm3 (4.00-5.60); WHITE BLOOD COUNT 3.7 K/mm3 (4.0-10.0)
[2019-03-14 13:41] LABS: ALBUMIN 3.2 g/dl (3.4-5.0); BILIRUBIN,TOTAL 0.3 mg/dL (0.2-1); BLOOD UREA NITROGEN 10.7 mg/dL (7-18); CALCIUM 8.8 mg/dL (8.5-10.1); POTASSIUM 3.8 mmol/L (3.5-5.1); TOT PROT 6.8 g/dl (6.4-8.2)
[2019-03-14 14:16] LABS: PLATELET COUNT 229 K/MM3 (134-434)
[2019-03-14] MEDS: THIAMINE HCL 100 MG TABLET (FP) PO SCH (22:19)
[2019-03-15] MEDS ORDERED: chlordiazePOXIDE HCL 10 MG CAPSULE PO PRN
[2019-03-15] MEDS: chlordiazePOXIDE HCL 10 MG CAPSULE PO SCH ×5 (05:17→23:46)
--- NOTE | 2019-03-15 11:05 | PN ---
S CIWA - CIWA Score Nausea/Vomitin Muscle Tremors: 2 Anxiety: 2 Agitation: 2 Paroxysmal Sweats: No Perspiration Orientation: 0-Oriented Tacttile Disturbances: 1-Very Mild Itch/Numbness Auditory Disturbances: 0-None Visual Disturbances: 0-None Headache: 2-Mild CIWA-Ar Total Score: 11 S Progress Note (SOAP) Subjective: alert,irritable,anxious,interrupted sleep,tremor Objective: 03/15/19 11:00 Vital Signs Temperature 97.7 F 03/15/19 06:22 Pulse Rate 57 L 03/15/19 06:22 Respiratory Rate 20 03/15/19 06:22 Blood Pressure 117/78 03/15/19 06:22 O2 Sat by Pulse Oximetry (%) 03/15/19 11:00 Laboratory Last Values WBC 3.7 K/mm3 (4.0-10.0) L 03/14/19 08:00 RBC 4.31 M/mm3 (4.00-5.60) 03/14/19 08:00 Hgb 12.6 GM/dL (11.7-16.9) 03/14/19 08:00 Hct 38.2 % (35.4-49) 03/14/19 08:00 MCV 88.6 fl (80-96) 03/14/19 08:00 MCH 29.3 pg (25.7-33.7) 03/14/19 08:00 MCHC 33.1 g/dl (32.0-35.9) 03/14/19 08:00 RDW 14.0 % (11.9-15.9) 03/14/19 08:00 Plt Count 229 K/MM3 (134-434) 03/14/19 08:00 MPV 8.0 fl (7.5-11.1) 03/14/19 08:00 Sodium 139 mmol/L (136-145) 03/14/19 08:00 Potassium 3.8 mmol/L (3.5-5.1) 03/14/19 08:00 Chloride 104 mmol/L (98-107) 03/14/19 08:00 Carbon Dioxide 27 mmol/L (21-32) 03/14/19 08:00 Anion Gap 8 MMOL/L (8-16) 03/14/19 08:00 BUN 10.7 mg/dL (7-18) 03/14/19 08:00 Creatinine 1.0 mg/dL (0.55-1.3) 03/14/19 08:00 Est GFR (CKD-EPI)AfAm 104.15 03/14/19 08:00 Est GFR (CKD-EPI)NonAf 89.86 03/14/19 08:00 Random Glucose 189 mg/dL (74-106) H 03/14/19 08:00 Calcium 8.8 mg/dL (8.5-10.1) 03/14/19 08:00 Total Bilirubin 0.3 mg/dL (0.2-1) 03/14/19 08:00 AST 19 U/L (15-37) 03/14/19 08:00 ALT 24 U/L (13-61) 03/14/19 08:00 Alkaline Phosphatase 83 U/L (45-117) 03/14/19 08:00 Total Protein 6.8 g/dl (6.4-8.2) 03/14/19 08:00 Albumin 3.2 g/dl (3.4-5.0) L 03/14/19 08:00 RPR Titer Nonreactive (NONREACTIVE) 03/14/19 08:00 Assessment: 03/15/19 11:02 withdrawal symptom Plan: continue detox,initial glucose is 189,bgm monitoring,fasting glucose in am
[2019-03-15] MEDS: NICOTINE 14 MG/24 HOURS TOPICAL PATCH TD SCH (11:18)
[2019-03-15] MEDS: PRENATAL VITAMINS W/ FOLIC ACID TABLET (FP) PO SCH (11:18)
[2019-03-15] MEDS: THIAMINE HCL 100 MG TABLET (FP) PO SCH (23:46)
[2019-03-16] MEDS: chlordiazePOXIDE HCL 10 MG CAPSULE PO SCH ×2 (06:12→17:11)
--- NOTE | 2019-03-16 10:03 | PN ---
S CIWA - CIWA Score Nausea/Vomitin-No Nausea/No Vomiting Muscle Tremors: 1-None Visible, but [place] Anxiety: 2 Agitation: 0-Normal Activity Paroxysmal Sweats: 3 Orientation: 0-Oriented Tacttile Disturbances: 0-None Auditory Disturbances: 0-None Visual Disturbances: 0-None Headache: 2-Mild CIWA-Ar Total Score: 8 S Progress Note (SOAP) Subjective: c/o sweats, muscle pain, anxiety, and headache. Objective: 03/16/19 10:00 Vital Signs 03/16/19 03/16/19 07:41 09:16 Temperature 98.1 F 97.9 F Pulse Rate 55 L 57 L Respiratory 18 18 Rate Blood Pressure 112/65 129/71 Lab Results WBC 3.7 K/mm3 (4.0-10.0) L 03/14/19 08:00 RBC 4.31 M/mm3 (4.00-5.60) 03/14/19 08:00 Hgb 12.6 GM/dL (11.7-16.9) 03/14/19 08:00 Hct 38.2 % (35.4-49) 03/14/19 08:00 MCV 88.6 fl (80-96) 03/14/19 08:00 MCHC 33.1 g/dl (32.0-35.9) 03/14/19 08:00 RDW 14.0 % (11.9-15.9) 03/14/19 08:00 Plt Count 229 K/MM3 (134-434) 03/14/19 08:00 Sodium 139 mmol/L (136-145) 03/14/19 08:00 Potassium 3.8 mmol/L (3.5-5.1) 03/14/19 08:00 Chloride 104 mmol/L (98-107) 03/14/19 08:00 Carbon Dioxide 27 mmol/L (21-32) 03/14/19 08:00 Anion Gap 8 MMOL/L (8-16) 03/14/19 08:00 BUN 10.7 mg/dL (7-18) 03/14/19 08:00 Creatinine 1.0 mg/dL (0.55-1.3) 03/14/19 08:00 Random Glucose 189 mg/dL (74-106) H 03/14/19 08:00 Calcium 8.8 mg/dL (8.5-10.1) 03/14/19 08:00 Labs noted. Assessment: 03/16/19 10:00 AOX3, in no acute respiratory distress. Full ROM, ambulating in the unit. withdrawal symptoms As per counselor's notes, pt would stay until monday03/18/19 and would be picked up to [facility] [place]. 03/16/19 10:01 03/16/19 10:03 Plan: continue detox.
[2019-03-16] MEDS: NICOTINE 14 MG/24 HOURS TOPICAL PATCH TD SCH (10:50)
[2019-03-16] MEDS: PRENATAL VITAMINS W/ FOLIC ACID TABLET (FP) PO SCH (10:50)
[2019-03-16 17:46] VITALS: BP 107/60; PULSE 65; TEMP 98.1
[2019-03-17] MEDS ORDERED: chlordiazePOXIDE HCL 10 MG CAPSULE PO ONE (05:00)
== END 2019-03-16 17:51 | disposition home or self-care (01) | DRG 774 ==
LOC: YASAS 17:51 → Y6N 03-13 02:40
PROVIDERS: ADMIT Surgery; ATTEND Surgery
PROC: HZ2ZZZZ Detoxification Services for Substance Abuse Treatment (ICD-10-PCS; principal; 2019-03-13)
DX: F10.230 Alcohol dependence with withdrawal, uncomplicated (principal); F14.10 Cocaine abuse, uncomplicated; F12.10 Cannabis abuse, uncomplicated; Z86.19 Personal history of other infectious and parasitic diseases; Z91.013 Allergy to seafood; Z59.0 Homelessness
CPT/HCPCS: 36415; 71046-TC-FY; 80053; 82962; 85027; 86593; 93005; 93010

== ENCOUNTER 2022-09-06 12:43 | Inpatient (IN) | payer OTHER ==
[2022-09-06 14:09] VITALS: BMI 28.0
[2022-09-06] MEDS ORDERED: ONDANSETRON *ODT* 4 MG TABLET SL PRN (14:41)
[2022-09-06] MEDS ORDERED: POLYETHYLENE GLYCOL (HEALTHYLAX) 3350 17 GM PACKET PO PRN (14:41)
[2022-09-06] MEDS ORDERED: P-EPHED 60MG/TRIPROLIDI 2.5MG TABLET PO PRN (14:41)
[2022-09-06] MEDS ORDERED: ACETAMINOPHEN 325 MG TABLET (FP) PO PRN ×2 (14:41)
[2022-09-06] MEDS ORDERED: MAGNESIUM HYDROX 2400MG/30ML ORAL SUSPENSION 30 ML CUP PO PRN (14:41)
[2022-09-06] MEDS ORDERED: BENZOCAINE/MENTHOL (CHLORASEPTIC ) LOZENGE MM PRN (14:41)
[2022-09-06] MEDS ORDERED: guaiFENesin 200 MG/10 ML 10 ML UNIT-DOSE CUPS PO PRN (14:41)
[2022-09-06] MEDS ORDERED: MAG HYDROX/AL HYDROX/SIMETH 30 ML UNIT-DOSE CUP PO PRN (14:41)
[2022-09-06] MEDS ORDERED: NICOTINE POLACRILEX 4 MG GUM BUC PRN (14:41)
[2022-09-06] MEDS ORDERED: LOPERAMIDE HCL 2 MG CAPSULE PO PRN (14:41)
[2022-09-06] MEDS ORDERED: BISMUTH SUBSALICYLATE 524 MG/30 ML PO PRN (14:41)
[2022-09-06] MEDS ORDERED: DICYCLOMINE HCL 10 MG CAPSULE PO PRN (14:41)
[2022-09-06] MEDS: THIAMINE HCL 100 MG TABLET (FP) PO SCH (22:45)
[2022-09-06] MEDS: MELATONIN 5 MG TABLETS PO SCH (22:45)
[2022-09-06] MEDS: hydrOXYzine PAMOATE 25 MG CAPSULE (FP) PO PRN (22:46)
[2022-09-07] MEDS ORDERED: LORazepam 0.5 MG TABLET PO PRN (09:27)
[2022-09-07] MEDS: hydrOXYzine PAMOATE 25 MG CAPSULE (FP) PO PRN (09:36)
[2022-09-07] MEDS: IBUPROFEN 400 MG TABLET (FP) PO PRN ×2 (09:37→22:39)
[2022-09-07] MEDS: PRENATAL VITAMINS W/ FOLIC ACID TABLET (FP) PO SCH (09:38)
[2022-09-07] MEDS: LORazepam 2 MG TABLET PO SCH ×3 (10:26→22:38)
[2022-09-07] MEDS: NICOTINE 21 MG/24 HOURS TOPICAL PATCH TD SCH (10:27)
[2022-09-07 11:34] LABS: CALCIUM 8.7 mg/dL (8.5-10.1); HEMATOCRIT 38.3 % (35.4-49); HEMOGLOBIN 12.3 GM/dL (11.7-16.9); MCHC 32.1 g/dl (32.0-35.9); MEAN CELL VOLUME 90.2 fl (80-96); MEAN PLT VOLUME 8.3 fl (7.5-11.1); PLATELET COUNT 290 10^3/uL (134-434); RBC 4.25 M/mm3 (4.00-5.60); RDW 14.2 % (11.9-15.9); WHITE BLOOD COUNT 3.3 K/mm3 (4.0-10.0)
[2022-09-07 11:35] LABS: ALBUMIN 3.2 g/dl (3.4-5.0); BLOOD UREA NITROGEN 15.7 mg/dL (7-18)
[2022-09-07 11:37] LABS: CREATININE 1.1 mg/dL (0.55-1.3)
[2022-09-07 11:40] LABS: BILIRUBIN,TOTAL 0.2 mg/dL (0.2-1); TOT PROT 6.9 g/dl (6.4-8.2)
[2022-09-07] MEDS: MELATONIN 5 MG TABLETS PO SCH (22:37)
[2022-09-07] MEDS: THIAMINE HCL 100 MG TABLET (FP) PO SCH (22:38)
[2022-09-08] MEDS: LORazepam 1 MG TABLET PO SCH ×4 (06:14→22:19)
[2022-09-08] MEDS: NICOTINE 21 MG/24 HOURS TOPICAL PATCH TD SCH (10:21)
[2022-09-08] MEDS: PRENATAL VITAMINS W/ FOLIC ACID TABLET (FP) PO SCH (10:21)
[2022-09-08] MEDS: IBUPROFEN 400 MG TABLET (FP) PO PRN (15:31)
[2022-09-08] MEDS: THIAMINE HCL 100 MG TABLET (FP) PO SCH (21:57)
[2022-09-08] MEDS: MELATONIN 5 MG TABLETS PO SCH (21:57)
[2022-09-08] MEDS: hydrOXYzine PAMOATE 25 MG CAPSULE (FP) PO PRN (22:35)
[2022-09-09] MEDS: LORazepam 0.5 MG TABLET PO SCH ×3 (06:00→17:25)
[2022-09-09 10:23] VITALS: RESP 18
[2022-09-09] MEDS: PRENATAL VITAMINS W/ FOLIC ACID TABLET (FP) PO SCH (10:36)
[2022-09-09] MEDS: NICOTINE 21 MG/24 HOURS TOPICAL PATCH TD SCH (10:36)
[2022-09-09] MEDS: IBUPROFEN 400 MG TABLET (FP) PO PRN (10:37)
[2022-09-09 17:55] VITALS: BP 136/76; PULSE 87; TEMP 97.6
[2022-09-10] MEDS ORDERED: LORazepam 0.5 MG TABLET PO ONE (05:00)
== END 2022-09-09 17:20 | disposition left against medical advice (07) | DRG 770 ==
LOC: YASAS 12:43 → Y6N 15:28
PROVIDERS: ADMIT Allergy & Immunology; ATTEND Surgery
PROC: HZ2ZZZZ Detoxification Services for Substance Abuse Treatment (ICD-10-PCS; principal; 2022-09-06)
DX: F10.230 Alcohol dependence with withdrawal, uncomplicated (principal); F14.20 Cocaine dependence, uncomplicated; F12.20 Cannabis dependence, uncomplicated; F17.210 Nicotine dependence, cigarettes, uncomplicated; F31.9 Bipolar disorder, unspecified; F20.9 Schizophrenia, unspecified; F39 Unspecified mood [affective] disorder; U07.1 COVID-19
CPT/HCPCS: 36415; 80053; 85027; 86780; C9803-CS; U0003; U0005